=== PATIENT | male | born 1990 | race Hispanic/Latino ===

== ENCOUNTER 2020-11-10 04:46 | Emergency (ER) | payer SELFPAY ==
[2020-11-10] MEDS ORDERED: ACETAMINOPHEN 500 MG TAB ONE (05:54)
[2020-11-10 06:00] LABS: Protime INR 1.22
[2020-11-10 06:01] LABS: Absolute Lymphocytes (CBC) 0.8 K/uL (0.7-4.9); Basophils % 0.2 % (0-1.3); Hematocrit 36.8 % (39.6-49.0); Lymphocytes % 17.1 % (15.3-44.8); MPV 8.9 fL (7.6-11.3); RBC Red Blood Cell Count 4.14 M/uL (4.33-5.43)
[2020-11-10 06:11] LABS: ALT/SGPT 55 U/L (12-78); AST/SGOT 51 U/L (15-37); Albumin 3.1 g/dL (3.4-5.0); Alkaline Phosphatase 89 U/L (45-117); BUN Blood Urea Nitrogen 10 mg/dL (7-18); Bicarbonate 27 mmol/L (21-32); Bilirubin Direct 0.2 mg/dL (0-0.2); Bilirubin Total 0.5 mg/dL (0.2-1.0); Glucose Level 92 mg/dL (74-106); Magnesium 2.3 mg/dL (1.8-2.4); NT PRO-BNP 16 pg/mL (<125); Potassium 3.9 mmol/L (3.5-5.1); Sodium Level 137 mmol/L (136-145); Troponin (Emerg Dept Use Only) < 0.02 ng/mL (0.0-0.045)
[2020-11-10] MEDS ORDERED: NA CHLORIDE 0.9% 1,000 ML ONE (06:33)
--- NOTE | 2020-11-10 07:25 | ER ---
Nurse's Notes [facility] Name: Merritt Montano Age: 30 yrs Sex: Male : 1990 Arrival Date: 11/10/2020 Time: 04:48 Bed 5 Private MD: Diagnosis: Pneumonia Presentation: 11/10 05:00 Chief complaint: Patient states: I have been having a fever since yesterday. This jb4 morning I noticed when I was trying to be active and move around I began getting very short of breath and my chest hurt, so I wanted to get checked out. 05:00 Coronavirus screen: Client denies travel out of the [place] in the last 14 days. At this jb4 time, the client does not indicate any symptoms associated with coronavirus-19. Ebola Screen: No symptoms or risks identified at this time. Initial Sepsis Screen: Does the patient meet any 2 criteria? Temp <36.0*C (96.8*F)) or > 38.3*C (100.9*F). HR > 90 bpm. Yes Does the patient have a suspected source of infection? No. Patient's initial sepsis screen is negative. Risk Assessment: Do you want to hurt yourself or someone else? Patient reports no desire to harm self or others. Onset of symptoms was November 09, 2020. Transition of care: patient was not received from another setting of care. 05:00 Method Of Arrival: Ambulatory jb4 05:00 Acuity: NATI 3 jb4 Historical: - Allergies: 05:00 No Known Allergies; jb4 - Home Meds: 05:00 None [Active]; jb4 - PMHx: 05:00 None; jb4 - PSHx: 05:00 None; jb4 - Immunization history:: Adult Immunizations up to date. - Social history:: Smoking status: Patient denies any tobacco usage or history of. Patient/guardian denies using alcohol, street drugs. Screenin:19 Abuse screen: Denies threats or abuse. Nutritional screening: No deficits noted. jb4 Tuberculosis screening: No symptoms or risk factors identified. Fall Risk None identified. Assessment: 05:19 General: Appears in no apparent distress. uncomfortable, Behavior is calm, cooperative, jb4 appropriate for age. Pain: Complains of pain in chest Pain does not radiate. Pain currently is 8 out of 10 on a pain scale. Quality of pain is described as sharp, Pain began 2 hours ago. Neuro: Level of Consciousness is awake, alert, obeys commands, Oriented to person, place, time, situation. Cardiovascular: Patient's skin is warm and dry. Respiratory: Reports shortness of breath on exertion Airway is patent Respiratory effort is even, unlabored, Respiratory pattern is regular, symmetrical. GI: No signs and/or symptoms were reported involving the gastrointestinal system. : No signs and/or symptoms were reported regarding the genitourinary system. EENT: No signs and/or symptoms were reported regarding the EENT system. Derm: Skin is intact, Skin is pink, warm \T\ dry. Musculoskeletal: Circulation, motion, and sensation intact. Range of motion: intact in all extremities. 06:28 Reassessment: Patient appears in no apparent distress at this time. Patient and/or mg2 family updated on plan of care and expected duration. Pain level reassessed. Patient is alert, oriented x 3, equal unlabored respirations, skin warm/dry/pink. 07:58 Reassessment: Patient appears in no apparent distress at this time. Patient and/or ph family updated on plan of care and expected duration. Pain level reassessed. Patient is alert, oriented x 3, equal unlabored respirations, skin warm/dry/pink. D/C pending completion of IV antibiotics. 09:04 Reassessment: Patient appears in no apparent distress at this time. Patient and/or ph family updated on plan of care and expected duration. Pain level reassessed. Patient is alert, oriented x 3, equal unlabored respirations, skin warm/dry/pink. Pt d/c home w/ family. Vital Signs: 05:00 BP 123 / 73; Pulse 108; Resp 20; Temp 103.1(O); Pulse Ox 95% on R/A; Pain 8/10; jb4 06:26 BP 116 / 68; Pulse 87; Resp 18; Temp 100.4(O); Pulse Ox 97% on R/A; mg2 07:30 BP 120 / 78; Pulse 72; Resp 18; Pulse Ox 97% on R/A; ph 09:05 BP 118 / 70; Pulse 86; Resp 18; Temp 99.0; Pulse Ox 97% on R/A; ph ED Course: 04:48 Patient arrived in ED. cl3 04:56 Jonh Donis MD is Attending Physician. mh7 05:00 Arm band placed on right wrist. jb4 05:14 Nhan Hurst, RN is Primary Nurse. jb4 05:18 Triage completed. jb4 05:19 Patient has correct armband on for positive identification. Placed in gown. Bed in low jb4 position. Call light in reach. Side rails up X 1. Pulse ox on. NIBP on. 05:19 Patient maintains SpO2 saturation greater than 95% on room air. jb4 05:29 XRAY Chest (1 view) In Process Unspecified. EDMS 05:40 Inserted saline lock: 18 gauge in right antecubital area, using aseptic technique. mg2 Blood collected. by ISABELA Dickey. 05:49 No provider procedures requiring assistance completed. mg2 07:16 Primary Nurse role handed off by Nhan Hurst, RN jb4 07:21 Felisa Still, RN is Primary Nurse. ph 09:07 IV discontinued, intact, bleeding controlled, No redness/swelling at site. Pressure ph dressing applied. Administered Medications: 05:43 Drug: Tylenol 1000 mg Route: PO; dm5 06:28 Follow up: Response: No adverse reaction; Temperature is decreased mg2 06:22 Drug: NS 0.9% 1000 ml Route: IV; Rate: 1000 ml; Site: right antecubital; mg2 08:00 Follow up: Response: No adverse reaction; IV Status: Completed infusion; IV Intake: ph 1000ml 07:50 Drug: Rocephin - (cefTRIAXone) 1 grams {Note: given as 10mL IVP.} Route: IVPB; Infused ph Over: 30 mins; Site: right antecubital; 07:57 Follow up: Response: No adverse reaction; IV Status: Completed infusion ph 07:55 Drug: Zithromax 500 mg Route: IVPB; Infused Over: 1 hrs; Site: right antecubital; ph 09:04 Follow up: Response: No adverse reaction; IV Status: Completed infusion; IV Intake: ph 250ml Intake: 08:00 IV: 1000ml; Total: 1000ml. ph 09:04 IV: 250ml; Total: 1250ml. ph Outcome: 07:24 Discharge ordered by . mh7 09:07 Discharged to home ambulatory, with family. ph 09:07 Condition: good 09:07 Discharge instructions given to patient, family, Instructed on discharge instructions, follow up and referral plans. medication usage, Demonstrated understanding of instructions, follow-up care, medications, Prescriptions given X 2. 09:08 Patient left the ED. ph Addendum: 11/12/2020 17:39 Addendum: COVID-19 Result: Positive result giiven to ED physician to notify pt. s v Physician: Steven Saavedra MD Physician attempted to contact pt but the phone number provided was either not a working number or they were unable to leave a voice mail. Signatures: Dispatcher [employer] EDMS Claribel Urena RN RN dm5 Shanell Joseph RN RN sv Felisa Still RN RN Nhan Hurst RN RN jb4 Danis Levine RN RN [facility] Bhavin Lee cl3 Jonh Donis MD MD mh7 Corrections: (The following items were deleted from the chart) 17:43 17:39 Addendum: COVID-19 Result: Positive result giiven to ED physician to notify pt. sv Physician: Steven Saavedra MD Physician was able to contact pt and pt was notified of positive COVID-19 swab result. Physician answered pt questions. sv
--- NOTE | 2020-11-10 07:25 | EDPHYS ---
Physician Documentation [facility] Name: Merritt Montano Age: 30 yrs Sex: Male : 1990 Arrival Date: 11/10/2020 Time: 04:48 Bed 5 Private MD: ED Physician Jonh Donis HPI: 11/10 06:12 This 30 yrs old Male presents to ER via Ambulatory with complaints of Chest mh7 Pain, Breathing Difficulty. 06:13 The patient or guardian reports cough, with productive sputum, that is green, mh7 difficulty breathing. Onset: The symptoms/episode began/occurred yesterday. Severity of symptoms: At their worst the symptoms were moderate, in the emergency department the symptoms have improved, moderately. Modifying factors: The symptoms are alleviated by nothing, the symptoms are aggravated by nothing. Associated signs and symptoms: Pertinent positives: chest pain, with cough, fever, Pertinent negatives: diarrhea, ear ache, nausea, rhinorrhea, sore throat, vomiting. Historical: - Allergies: 05:00 No Known Allergies; jb4 - Home Meds: 05:00 None [Active]; jb4 - PMHx: 05:00 None; jb4 - PSHx: 05:00 None; jb4 - Immunization history:: Adult Immunizations up to date. - Social history:: Smoking status: Patient denies any tobacco usage or history of. Patient/guardian denies using alcohol, street drugs. ROS: 06:13 Eyes: Negative for injury, pain, redness, and discharge, ENT: Negative for injury, mh7 pain, and discharge, Neck: Negative for injury, pain, and swelling, Abdomen/GI: Negative for abdominal pain, nausea, vomiting, diarrhea, and constipation, Back: Negative for injury and pain, : Negative for injury, bleeding, discharge, and swelling, MS/Extremity: Negative for injury and deformity, Skin: Negative for injury, rash, and discoloration, Neuro: Negative for headache, weakness, numbness, tingling, and seizure, Psych: Negative for depression, anxiety, suicide ideation, homicidal ideation, and hallucinations, Allergy/Immunology: Negative for hives, rash, and allergies, Endocrine: Negative for neck swelling, polydipsia, polyuria, polyphagia, and marked weight changes, Hematologic/Lymphatic: Negative for swollen nodes, abnormal bleeding, and unusual bruising. Exam: 06:13 Constitutional: This is a well developed, well nourished patient who is awake, alert, mh7 and in no acute distress. Head/Face: Normocephalic, atraumatic. Eyes: Pupils equal round and reactive to light, extra-ocular motions intact. Lids and lashes normal. Conjunctiva and sclera are non-icteric and not injected. Cornea within normal limits. Periorbital areas with no swelling, redness, or edema. ENT: Nares patent. No nasal discharge, no septal abnormalities noted. Tympanic membranes are normal and external auditory canals are clear. Oropharynx with no redness, swelling, or masses, exudates, or evidence of obstruction, uvula midline. Mucous membranes moist. Neck: Trachea midline, no thyromegaly or masses palpated, and no cervical lymphadenopathy. Supple, full range of motion without nuchal rigidity, or vertebral point tenderness. No Meningismus. Chest/axilla: Normal chest wall appearance and motion. Nontender with no deformity. No lesions are appreciated. Cardiovascular: Regular rate and rhythm with a normal S1 and S2. No gallops, murmurs, or rubs. Normal PMI, no JVD. No pulse deficits. Respiratory: Lungs have equal breath sounds bilaterally, clear to auscultation and percussion. No rales, rhonchi or wheezes noted. No increased work of breathing, no retractions or nasal flaring. Abdomen/GI: Soft, non-tender, with normal bowel sounds. No distension or tympany. No guarding or rebound. No evidence of tenderness throughout. Back: No spinal tenderness. No costovertebral tenderness. Full range of motion. Skin: Warm, dry with normal turgor. Normal color with no rashes, no lesions, and no evidence of cellulitis. MS/ Extremity: Pulses equal, no cyanosis. Neurovascular intact. Full, normal range of motion. Neuro: Awake and alert, GCS 15, oriented to person, place, time, and situation. Cranial nerves II-XII grossly intact. Motor strength 5/5 in all extremities. Sensory grossly intact. Cerebellar exam normal. Normal gait. Psych: Awake, alert, with orientation to person, place and time. Behavior, mood, and affect are within normal limits. Vital Signs: 05:00 BP 123 / 73; Pulse 108; Resp 20; Temp 103.1(O); Pulse Ox 95% on R/A; Pain 8/10; jb4 06:26 BP 116 / 68; Pulse 87; Resp 18; Temp 100.4(O); Pulse Ox 97% on R/A; mg2 07:30 BP 120 / 78; Pulse 72; Resp 18; Pulse Ox 97% on R/A; ph 09:05 BP 118 / 70; Pulse 86; Resp 18; Temp 99.0; Pulse Ox 97% on R/A; ph MDM: 07:22 Differential Diagnosis: Bronchitis Influenza Allergic Rhinitis Viral Syndrome mh7 Pneumonia. Data reviewed: vital signs, nurses notes, lab test result(s), cardiac enzymes, CBC, electrolytes, urinalysis, EKG, radiologic studies, plain films. Data interpreted: Pulse oximetry: on room air is 97 %. Interpretation: normal. Counseling: I had a detailed discussion with the patient and/or guardian regarding: the historical points, exam findings, and any diagnostic results supporting the discharge/admit diagnosis, lab results, radiology results, the need for outpatient follow up, to return to the emergency department if symptoms worsen or persist or if there are any questions or concerns that arise at home. Response to treatment: the patient's symptoms have resolved after treatment, the patient's blood pressure is in an acceptable range, mental status has returned to baseline, the patient no longer shows bradycardia, the patient is not short of breath, the patient is not tachycardic, the patient's pain is gone, the patient's temperature has normalized. 07:24 Patient medically screened. [facility] 11/10 05:08 Order name: Basic Metabolic Panel; Complete Time: 06:15 [facility] 11/10 05:08 Order name: CBC with Diff; Complete Time: 06:15 [facility] 11/10 05:08 Order name: LFT's; Complete Time: 06:15 [facility] 11/10 05:08 Order name: Magnesium; Complete Time: 06:15 [facility] 11/10 05:08 Order name: NT PRO-BNP; Complete Time: 06:15 [facility] 11/10 05:08 Order name: PT-INR; Complete Time: 06:15 [facility] 11/10 05:08 Order name: Troponin (emerg Dept Use Only); Complete Time: 06:15 [facility] 11/10 05:08 Order name: XRAY Chest (1 view); Complete Time: 20:12 11/10 05:09 Order name: Influenza Screen (a \T\ B); Complete Time: 06:18 [facility] 11/10 05:09 Order name: COVID-19 [facility] 11/10 05:09 Order name: Blood Culture Adult (2) [facility] 11/10 06:18 Order name: Lactate; Complete Time: 06:57 11/10 06:18 Order name: Procalcitonin; Complete Time: 07:18 [facility] 11/10 05:08 Order name: EKG; Complete Time: 05:09 [facility] 11/10 05:08 Order name: Cardiac monitoring; Complete Time: 05:12 [facility] 11/10 05:08 Order name: EKG - Nurse/Tech; Complete Time: 05:12 11/10 05:08 Order name: IV Saline Lock; Complete Time: 05:49 [facility] 11/10 05:08 Order name: Labs collected and sent; Complete Time: 05:49 [facility] 11/10 05:08 Order name: O2 Per Protocol; Complete Time: 05:49 11/10 05:08 Order name: O2 Sat Monitoring; Complete Time: 05:49 mh7 Administered Medications: 05:43 Drug: Tylenol 1000 mg Route: PO; dm5 06:28 Follow up: Response: No adverse reaction; Temperature is decreased mg2 06:22 Drug: NS 0.9% 1000 ml Route: IV; Rate: 1000 ml; Site: right antecubital; mg2 08:00 Follow up: Response: No adverse reaction; IV Status: Completed infusion; IV Intake: ph 1000ml 07:50 Drug: Rocephin - (cefTRIAXone) 1 grams {Note: given as 10mL IVP.} Route: IVPB; Infused ph Over: 30 mins; Site: right antecubital; 07:57 Follow up: Response: No adverse reaction; IV Status: Completed infusion ph 07:55 Drug: Zithromax 500 mg Route: IVPB; Infused Over: 1 hrs; Site: right antecubital; ph 09:04 Follow up: Response: No adverse reaction; IV Status: Completed infusion; IV Intake: ph 250ml Disposition: 11/10/20 07:24 Discharged to Home. Impression: Pneumonia. - Condition is Stable. - Discharge Instructions: Community-Acquired Pneumonia, Adult, Sjyj-[id number]. - Prescriptions for Zithromax Z- Sherman 250 mg Oral Tablet - take 1 tablet by ORAL route as directed for 5 days Day 1 - take two (2) tablets one time. Day 2, 3, 4 , 5 take one (1) tablet once daily.; 6 tablet. Albuterol Sulfate 90 mcg/actuation - inhale 1-2 puff by INHALATION route every 4-6 hours; 1 Inhaler. - Work release form, Medication Reconciliation Form, Thank You Letter, Antibiotic Education, Prescription Opioid Use form. - Follow up: Private Physician; When: 1 - 2 days; Reason: Worsening of condition, Recheck today's complaints, Continuance of care, Re-evaluation by your physician. - Problem is new. - Symptoms have improved. Signatures: Dispatcher [employer] EDClaribel Barajas RN RN dm5 Felisa Still RN RN ph Nhan Hurst RN RN jb4 Danis Levine RN RN mg2 Jonh Donis MD MD mh7 Corrections: (The following items were deleted from the chart) 09:08 07:24 11/10/2020 07:24 Discharged to Home. Impression: Pneumonia. Condition is Stable. ph Forms are Medication Reconciliation Form, Thank You Letter, Antibiotic Education, Prescription Opioid Use. Follow up: Private Physician; When: 1 - 2 days; Reason: Worsening of condition, Recheck today's complaints, Continuance of care, Re-evaluation by your physician. Problem is new. Symptoms have improved. mh7
[2020-11-10] MEDS ORDERED: CEFTRIAXONE/SWI 1gm 1 GM/10 ML SYR ONE (07:47)
[2020-11-10] MEDS ORDERED: AZITHROMYCIN IV 500 MG in NA CHLORIDE 0.9% 250 ML IVPB ONE (08:00)
--- NOTE | 2020-11-10 11:57 | RAD REPORT ---
EXAM DESCRIPTION: RAD - Chest Single View - 11/10/2020 5:29 am CLINICAL HISTORY: SOB Chest pain. COMPARISON: No comparisons FINDINGS: Portable technique limits examination quality. Mild bilateral pulmonary opacities are present, greatest in the medial left lung base, likely represe nting pneumonia. The heart is normal in size. No displaced fractures.
--- NOTE | 2020-11-11 07:35 | EKG ---
Test Date: 2020-11-10 Test Time: 05:05:23 Fiber Optics Technician: AUDELIA MEASUREMENT RESULTS: Intervals: Rate: 90 MA: 142 QRSD: 74 QT: 352 QTc: 430 [place]: P: 36 MA: 142 QRS: 66 T: 15 INTERPRETIVE STATEMENTS: Normal sinus rhythm Normal ECG No previous ECG available for comparison Electronically Signed On 11-11-20 07:34:24 [employer]ING [employer] OFFIC[employer] by Cosme [place]
[2020-11-12 08:56] VITALS: O2SAT 97
[2020-11-12 08:58] VITALS: BP 118/70; TEMP 99
== END 2020-11-10 09:08 | disposition home or self-care (01) ==
LOC: ER 04:46
DX: U07.1 COVID-19 (principal); J12.89 Other viral pneumonia
CPT/HCPCS: 36415; 71045; 80048; 80076; 83605; 83735; 83880; 84145; 84484; 85025; 85610; 87040; 87804; 93005; 96361; 96365; 96375; 99284; J0456; J0696; J7030; J7050; U0002

== ENCOUNTER 2022-10-25 17:57 | Emergency (ER) | payer SELFPAY ==
[2022-10-25] MEDS ORDERED: ONDANSETRON 4 MG/2 ML VIAL ONE ×2 (18:34→18:52)
[2022-10-25] MEDS ORDERED: MORPHINE 4 MG/ML SYR ONE (18:34)
[2022-10-25] MEDS ORDERED: NA CHLORIDE 0.9% 1,000 ML ONE (18:34)
[2022-10-25 18:47] LABS: Absolute Lymphocytes (CBC) 2.9 K/uL (0.7-4.9); Hematocrit 42.4 % (39.6-49.0); Lymphocytes % 32.8 % (15.3-44.8); MCV 89.5 fL (80-100); MPV 8.3 fL (7.6-11.3); RBC Red Blood Cell Count 4.73 M/uL (4.33-5.43)
[2022-10-25] MEDS ORDERED: KETOROLAC 30 MG/ML INJ ONE (18:52)
[2022-10-25 19:06] LABS: Albumin 3.9 g/dL (3.4-5.0); Bilirubin Total 0.5 mg/dL (0.2-1.0); Potassium 3.7 mmol/L (3.5-5.1); Protein, Total 8.6 g/dL (6.4-8.2)
--- NOTE | 2022-10-25 20:20 | RAD REPORT ---
EXAM DESCRIPTION: CT - Stone Protocol - 10/25/2022 7:46 pm CLINICAL HISTORY: right abd and flank pain COMPARISON: Abdomen Single View dated 10/25/2022 TECHNIQUE: Axial 3 mm thick images were obtained without oral or IV contrast. The [id number] span s the entirety of the system including uppermost abdomen and lung bases. All CT scans are performed using dose optimization technique as appropriate and may include automated exposure control or mA/KV adjustment according to patient size. FINDINGS: [id number] right-sided hydronephrosis of the pelvis and right ureter down to the pel eugenia inlet noted. There is an obstructing 7 mm calcification of the right ureter at the pelvic inlet. An additional 6 millimeter nonobstructing calyx calcifications seen upper pole of the right kidney. R ight kidney is slightly edematous relative the left. No left-sided hydronephrosis or significant calc ification. No suspicious renal masses. Isodense masses and pyelonephritis are not excluded on a stone protocol CT scan. No significant adrenal finding. No urinary bladder suspicious finding. Imaged portions of the liver, spleen and pancreas show no suspicious findings on non-contrast imaging . No gallbladder or biliary tree abnormality identified. No suspicious bowel findings. No hernia, mass or bulky lymphadenopathy noted. No free air, free fluid or inflammatory stranding. No significant bony abnormality. IMPRESSION: [id number] right-sided hydronephrosis and hydroureter down to the pelvic inlet whe re there is an obstructing 7 mm calcification. Isodense masses and pyelonephritis are not excluded on stone protocol technique.
[2022-10-25 20:42] LABS: Urine Mucus Slight /HPF (None Seen); Urine RBC 21-50 /HPF (None Seen)
[2022-10-25] MEDS ORDERED: HYDROCODONE/APAP 10/325 TAB ONE (20:55)
[2022-10-25] MEDS ORDERED: TAMSULOSIN 0.4 MG SR CAP ONE (20:56)
[2022-10-25] MEDS ORDERED: MAGNESIUM SULFATE 1 gm IVPB 1 GM/100 ML BAG IV ONE (20:56)
--- NOTE | 2022-10-25 22:14 | EDPHYS ---
Physician Documentation [facility] Name: Merritt Montano Age: 32 yrs Sex: Male : 1990 Arrival Date: 10/25/2022 Time: 17:59 Bed 11 Private MD: ED Physician Ludin Ochoa HPI: 10/25 20:11 This 32 yrs old Male presents to ER via Ambulatory with complaints of Low Abd kb Pain. 20:11 The patient complains of pain in the right flank. The pain radiates to the groin and kb right lower quadrant. Onset: The symptoms/episode began/occurred 2 hour(s) ago. Modifying factors: The symptoms are alleviated by nothing. the symptoms are aggravated by nothing. Associated signs and symptoms: Pertinent positives: nausea, vomiting. Severity of pain: At its worst the pain was moderate in the emergency department the pain is unchanged. The patient has not experienced similar symptoms in the past. The patient has not recently seen a physician. 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 Denies urinary sypmtoms. Historical: - Allergies: 18:02 No Known Allergies; ld1 - PMHx: 18:02 None; ld1 - PSHx: 18:02 None; ld1 - Immunization history:: Adult Immunizations up to date, Client reports receiving the 2nd dose of the Covid vaccine. - Social history:: Smoking status: Patient denies any tobacco usage or history of. Patient/guardian denies using alcohol. ROS: 20:10 Constitutional: Negative for fever, chills, and weight loss. kb 20:10 Abdomen/GI: Positive for abdominal pain, nausea and vomiting. 20:10 : Positive for flank pain, testicular pain 20:10 All other systems are negative. Exam: 20:10 Constitutional: This is a well developed, well nourished patient who is awake, alert, kb and in no acute distress. Head/Face: Normocephalic, atraumatic. ENT: Moist Mucous membranes Cardiovascular: Regular rate and rhythm with a normal S1 and S2. No gallops, murmurs, or rubs. No pulse deficits. Respiratory: Respirations even and unlabored. No increased work of breathing. Talking in full sentences Skin: Warm, dry with normal turgor. Normal color. MS/ Extremity: Pulses equal, no cyanosis. Neurovascular intact. Full, normal range of motion. Neuro: Awake and alert, GCS 15, oriented to person, place, time, and situation. Moves all extremities. Normal gait. Psych: Awake, alert, with orientation to person, place and time. Behavior, mood, and affect are within normal limits. 20:10 Abdomen/GI: Inspection: abdomen appears normal, Bowel sounds: normal, Palpation: soft, in all quadrants, mild abdominal tenderness, in the right lower quadrant. 20:10 Back: CVA tenderness, that is moderate, is noted on the right. Vital Signs: 18:00 Pulse 64; Resp 18; Temp 98.6(O); Pulse Ox 100% on R/A; Weight 124.74 kg; Height 5 ft. 5 ld1 in. (165.10 cm); Pain 10/10; 18:55 BP 128 / 71; Pulse 62; Resp 18 S; Pulse Ox 99% on R/A; Pain 7/10; aa5 22:00 BP 133 / 66; Pulse 63; Resp 18; Temp 98.2; Pulse Ox 100% on R/A; vc1 18:00 Body Mass Index 45.76 (124.74 kg, 165.10 cm) ld1 MDM: 18:03 Patient medically screened. 20:09 Data reviewed: vital signs, nurses notes. Data interpreted: Pulse oximetry: on room air kb is 99 %. Interpretation: normal. 22:13 Counseling: I had a detailed discussion with the patient and/or guardian regarding: the historical points, exam findings, and any diagnostic results supporting the discharge/admit diagnosis, lab results, radiology results, the need for outpatient follow up, a urologist, to return to the emergency department if symptoms worsen or persist or if there are any questions or concerns that arise at home. 22:16 ED course: Pt controlled. Pt will call Dr Mcnair' office tomorrow for follow up. 22:17 Data reviewed: I have discussed the patient's presentation/case with the attending Emergency Department Physician;. 10/25 18:03 Order name: CBC with Diff; Complete Time: 18:50 kb 10/25 18:03 Order name: CMP; Complete Time: 19:15 kb 10/25 18:03 Order name: CT Stone Protocol; Complete Time: 20:23 kb 10/25 18:03 Order name: Lipase; Complete Time: 19:15 kb 10/25 18:03 Order name: Urine Microscopic Only; Complete Time: 20:43 kb 10/25 18:03 Order name: IV Saline Lock; Complete Time: 18:33 kb 10/25 18:03 Order name: Labs collected and sent; Complete Time: 18:33 kb 10/25 18:03 Order name: Urine Dipstick-Ancillary (obtain specimen); Complete Time: 18:45 kb Administered Medications: 18:38 Drug: Zofran (Ondansetron) 4 mg Route: IVP; Site: left antecubital; aa5 18:50 Follow up: Response: No change in condition; No change in condition. 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 18:38 Drug: morphine 4 mg Route: IVP; Infused Over: 4 mins; Site: left antecubital; aa5 18:50 Follow up: Response: No adverse reaction; Pain is unchanged, physician notified aa5 18:40 Drug: NS 0.9% 1000 ml Route: IV; Rate: 1 bolus; Site: left antecubital; aa5 19:40 Follow up: IV Status: Completed infusion; IV Intake: 1000ml vc1 18:51 Drug: Zofran (Ondansetron) 4 mg Route: IVP; Site: left antecubital; aa5 22:00 Follow up: Response: No adverse reaction; Marked relief of symptoms; Nausea is decreasedvc1 18:53 Drug: Ketorolac 15 mg Route: IVP; Site: left antecubital; aa5 22:00 Follow up: Response: No adverse reaction; Marked relief of symptoms vc1 21:14 Drug: Magnesium Sulfate 1 grams Route: IVPB; Infused Over: 1 hrs; Site: left vc1 antecubital; 22:14 Follow up: IV Status: Completed infusion; IV Intake: 100ml vc1 21:14 Drug: [place] (HYDROcodone-acetaminophen) 10 mg-325 mg 1 tabs Route: PO; vc1 22:00 Follow up: Response: No adverse reaction; Marked relief of symptoms; Pain is decreased vc1 21:15 Drug: Flomax (tamsulosin) 0.4 mg Route: PO; vc1 22:00 Follow up: Response: No adverse reaction; Marked relief of symptoms vc1 Disposition Summary: 12/04/22 22:14 Discharge Ordered Location: Home Condition: Stable Diagnosis - Calculus of ureter kb Followup: kb - With: Emergency Department - When: As needed - Reason: Worsening of condition Followup: kb - With: Private Physician - When: 2 - 3 days - Reason: Recheck today's complaints, Continuance of care, Re-evaluation by your physician Followup: kb - With: Smooth Mcnair MD - When: Tomorrow - Reason: Recheck today's complaints Discharge Instructions: - Discharge Summary Sheet kb - Kidney Stones, [id number] kb - Dietary Guidelines to Help Prevent Kidney Stones kb Forms: - Medication Reconciliation Form kb - Thank You Letter kb - Antibiotic Education kb - Prescription Opioid Use kb Prescriptions: - Flomax 0.4 mg Oral capsule - take 1 capsule by ORAL route once daily 1/2 hour following the same meal each kb day; 10 capsule; Refills: 0, Product Selection Permitted - Zofran 4 mg Oral Tablet - take 1 tablet by ORAL route every 6 hours As needed; 20 tablet; Refills: 0, Product Selection Permitted - Diclofenac Sodium 75 mg Oral tablet,delayed release (DR/EC) - take 1 tablet by ORAL route 2 times per day As needed; 30 tablet; Refills: 0, Product Selection Permitted - Tylenol-Codeine #3 300 mg-30 mg Oral - take 1 tablet by ORAL route every 6 hours As needed; 10 tablet; Refills: 0, Product Selection Permitted Signatures: Dispatcher [employer] Tiffany White, FREDDY-C SNATH HANDLE ASSEMBLER-Mindy Beltran RN RN aa5 Alma Fields RN RN ld1 Kenya Watters RN RN vc1
--- NOTE | 2022-10-25 22:14 | ER ---
Nurse's Notes [facility] Name: Merritt Montano Age: 32 yrs Sex: Male : 1990 Arrival Date: 10/25/2022 Time: 17:59 Bed 11 Private MD: Diagnosis: Calculus of ureter Presentation: 10/25 18:00 Chief complaint: Patient states: Testicular pain, groin pain, lower abdominal pain, ld1 right sided flank pain - began two hours ago. Coronavirus screen: At this time, the client does not indicate any symptoms associated with coronavirus-19. Ebola Screen: No symptoms or risks identified at this time. Initial Sepsis Screen: Does the patient meet any 2 criteria? No. Patient's initial sepsis screen is negative. Does the patient have a suspected source of infection? No. Patient's initial sepsis screen is negative. Risk Assessment: Do you want to hurt yourself or someone else? Patient reports no desire to harm self or others. Onset of symptoms was October 25, 2022. 18:00 Method Of Arrival: Ambulatory ld1 18:00 Acuity: NATI 3 ld1 Triage Assessment: 18:02 General: Appears in no apparent distress. uncomfortable, Behavior is calm, cooperative, ld1 appropriate for age. Pain: Complains of pain in back, abdomen and pelvis Pain does not radiate. Pain currently is 10 out of 10 on a pain scale. Quality of pain is described as throbbing. EENT: No signs and/or symptoms were reported regarding the EENT system. Neuro: Level of Consciousness is awake, alert, obeys commands, Oriented to person, place, time, situation. Cardiovascular: Capillary refill < 3 seconds Patient's skin is warm and dry. Respiratory: Airway is patent Respiratory effort is even, unlabored. GI: Abdomen is round obese. GI: Reports lower abdominal pain. : No signs and/or symptoms were reported regarding the genitourinary system. : Reports pain in bilateral flank(s), lower quadrant(s) Scrotal pain: sudden onset. Derm: No signs and/or symptoms reported regarding the dermatologic system. Musculoskeletal: No signs and/or symptoms reported regarding the musculoskeletal system. Historical: - Allergies: 18:02 No Known Allergies; ld1 - PMHx: 18:02 None; ld1 - PSHx: 18:02 None; ld1 - Immunization history:: Adult Immunizations up to date, Client reports receiving the 2nd dose of the Covid vaccine. - Social history:: Smoking status: Patient denies any tobacco usage or history of. Patient/guardian denies using alcohol. Screenin:09 Abuse screen: Denies threats or abuse. Nutritional screening: No deficits noted. vc1 Tuberculosis screening: No symptoms or risk factors identified. Fall Risk None identified. Assessment: 18:38 General: Appears uncomfortable, Behavior is cooperative. Neuro: Level of Consciousness aa5 is awake, alert, obeys commands, Oriented to person, place, time, situation. Respiratory: Airway is patent Respiratory effort is even, unlabored, Respiratory pattern is regular, symmetrical. Derm: Skin is clammy, Skin is normal, Skin temperature is cool. 18:38 Pain: Pain currently is 10 out of 10 on a pain scale. aa5 18:50 Reassessment: Patient states symptoms have not improved. Pt actively vomiting . aa5 18:50 Pain: Pain currently is 10 out of 10 on a pain scale. aa5 18:50 Neuro: Level of Consciousness is awake, alert, obeys commands, Oriented to person, aa5 place, time, situation. Respiratory: Airway is patent Respiratory effort is even, unlabored, Respiratory pattern is regular, symmetrical. Derm: Skin is dry, Skin is normal, Skin temperature is cool. 18:52 Reassessment: Pt vomited 100cc of bile . aa5 18:52 Reassessment: Awaiting CT scan . aa5 18:57 Reassessment: Patient states feeling better. Patient states symptoms have improved. aa5 Pain: Pain currently is 7 out of 10 on a pain scale. Neuro: Level of Consciousness is awake, alert, obeys commands, Oriented to person, place, time, situation. Respiratory: Airway is patent Respiratory effort is even, unlabored, Respiratory pattern is regular, symmetrical. Derm: Skin is dry, Skin is normal, Skin temperature is cool. 22:11 Reassessment: Patient and/or family updated on plan of care and expected duration. Pain vc1 level reassessed. Patient is alert, oriented x 3, equal unlabored respirations, skin warm/dry/pink. Patient states feeling better. Patient states symptoms have improved. Vital Signs: 18:00 Pulse 64; Resp 18; Temp 98.6(O); Pulse Ox 100% on R/A; Weight 124.74 kg; Height 5 ft. 5 ld1 in. (165.10 cm); Pain 10/10; 18:55 BP 128 / 71; Pulse 62; Resp 18 S; Pulse Ox 99% on R/A; Pain 7/10; aa5 22:00 BP 133 / 66; Pulse 63; Resp 18; Temp 98.2; Pulse Ox 100% on R/A; vc1 18:00 Body Mass Index 45.76 (124.74 kg, 165.10 cm) ld1 ED Course: 17:59 Patient arrived in ED. rg4 17:59 Tiffany Santos FNP-C [facility]. kb 17:59 Ludin Ochao MD is Attending Physician. kb 18:02 Triage completed. ld1 18:02 Arm band placed on right wrist. ld1 18:35 Initial lab(s) drawn, by vt, sent to lab. Inserted saline lock: 20 gauge in left aa5 antecubital area, using aseptic technique. Blood collected. 18:45 Urine collected: clean catch specimen, cloudy. rs5 19:48 CT Stone Protocol In Process Unspecified. EDMS 20:12 Kenya Watters, RN is Primary Nurse. vc1 22:10 Patient has correct armband on for positive identification. Bed in low position. Call vc1 light in reach. Pulse ox on. NIBP on. 22:13 Smooth Mcnair MD is Referral Physician. kb 22:33 No provider procedures requiring assistance completed. IV discontinued, intact, vc1 bleeding controlled, No redness/swelling at site. Pressure dressing applied. Administered Medications: 18:38 Drug: Zofran (Ondansetron) 4 mg Route: IVP; Site: left antecubital; aa5 18:50 Follow up: Response: No change in condition; No change in condition. Pt vomiting, GALLEY HAND aa5 was notified. 18:38 Drug: morphine 4 mg Route: IVP; Infused Over: 4 mins; Site: left antecubital; aa5 18:50 Follow up: Response: No adverse reaction; Pain is unchanged, physician notified aa5 18:40 Drug: NS 0.9% 1000 ml Route: IV; Rate: 1 bolus; Site: left antecubital; aa5 19:40 Follow up: IV Status: Completed infusion; IV Intake: 1000ml vc1 18:51 Drug: Zofran (Ondansetron) 4 mg Route: IVP; Site: left antecubital; aa5 22:00 Follow up: Response: No adverse reaction; Marked relief of symptoms; Nausea is decreasedvc1 18:53 Drug: Ketorolac 15 mg Route: IVP; Site: left antecubital; aa5 22:00 Follow up: Response: No adverse reaction; Marked relief of symptoms vc1 21:14 Drug: Magnesium Sulfate 1 grams Route: IVPB; Infused Over: 1 hrs; Site: left vc1 antecubital; 22:14 Follow up: IV Status: Completed infusion; IV Intake: 100ml vc1 21:14 Drug: [place] (HYDROcodone-acetaminophen) 10 mg-325 mg 1 tabs Route: PO; vc1 22:00 Follow up: Response: No adverse reaction; Marked relief of symptoms; Pain is decreased vc1 21:15 Drug: Flomax (tamsulosin) 0.4 mg Route: PO; vc1 22:00 Follow up: Response: No adverse reaction; Marked relief of symptoms vc1 Medication: 22:10 VIS not applicable for this client. vc1 Intake: 19:40 IV: 1000ml; Total: 1000ml. vc1 22:14 IV: 100ml; Total: 1100ml. vc1 Outcome: 22:14 Discharge ordered by . kb 22:33 Discharged to home ambulatory, with family. vc1 22:33 Condition: good 22:33 Discharge instructions given to patient, Instructed on discharge instructions, follow up and referral plans. medication usage, Demonstrated understanding of instructions, follow-up care, medications, Prescriptions given X 4. 22:33 Patient left the ED. vc1 Signatures: Dispatcher [employer] EDMS Tiffany Santos, BAYRONC FREDDY-Mindy Beltran RN RN [id number] Lori Serrano rg4 Alma Fields RN RN ld1 Kenya Watters RN RN vc1 Jeramy Jay rs5 Corrections: (The following items were deleted from the chart) 18:02 18:00 Pulse 64bpm; Resp 18bpm; Pulse Ox 100% RA; 124.74 kg; Height 5 ft. 5 in.; BMI: ld1 45.7; Pain 10/10; ld1 18:55 18:50 Reassessment: Patient is alert, oriented x 3, equal unlabored respirations, skin aa5 warm/dry/pink. Patient states symptoms have not improved. Pt actively vomiting . aa5
[2022-10-25 23:22] VITALS: BP 133/66; TEMP 98.2; O2SAT 100
== END 2022-10-25 22:33 | disposition home or self-care (01) ==
LOC: ER 17:57
DX: N20.1 Calculus of ureter (principal)
CPT/HCPCS: 36415; 74176; 76377; 80053; 81015; 83690; 85025; 96361; 96365; 96375; 99284; J2405; J3475; J7030

== ENCOUNTER 2022-10-27 15:52 | Emergency (ER) | payer SELFPAY ==
[2022-10-27] MEDS ORDERED: NA CHLORIDE 0.9% 1,000 ML ONE (16:59)
[2022-10-27] MEDS ORDERED: MORPHINE 4 MG/ML SYR ONE (16:59)
[2022-10-27] MEDS ORDERED: ONDANSETRON 4 MG/2 ML VIAL ONE (16:59)
[2022-10-27 17:27] LABS: Absolute Lymphocytes (CBC) 1.8 K/uL (0.7-4.9); Hematocrit 39.1 % (39.6-49.0); Lymphocytes % 17.3 % (15.3-44.8); MCV 90.7 fL (80-100); MPV 8.8 fL (7.6-11.3); RBC Red Blood Cell Count 4.32 M/uL (4.33-5.43)
[2022-10-27 17:32] LABS: Urine Blood 2+ (Negative); Urine Glucose Negative (Negative); Urine Protein Negative (Negative); Urine Specific Gravity 1.025 (1.005-1.030); Urine pH 6.5 (5.0-7.0)
[2022-10-27 17:57] LABS: Urine Mucus Slight /HPF (None Seen); Urine RBC >50 /HPF (None Seen)
--- NOTE | 2022-10-27 17:57 | RAD REPORT ---
EXAM DESCRIPTION: US - Renal Ultrasound-Limited - 10/27/2022 5:45 pm CLINICAL HISTORY: Right flank pain COMPARISON: CT October 25, 2022 FINDINGS: Right kidney measures 12 centimeters with a normal echotexture. Renal calculus is not seen Mild to moderate right hydronephrosis without significant change. The bladder appears grossly IMPRESSION: [id number] right hydronephrosis without significant change from the prior exam
[2022-10-27] MEDS ORDERED: KETOROLAC 30 MG/ML INJ ONE (18:08)
[2022-10-27] MEDS ORDERED: TAMSULOSIN 0.4 MG SR CAP ONE (18:08)
[2022-10-27 18:32] LABS: Albumin 3.5 g/dL (3.4-5.0); Bilirubin Total 0.4 mg/dL (0.2-1.0); Potassium 4.2 mmol/L (3.5-5.1); Protein, Total 7.5 g/dL (6.4-8.2)
--- NOTE | 2022-10-27 19:08 | ER ---
Nurse's Notes [facility] Name: Merritt Montano Age: 32 yrs Sex: Male : 1990 Arrival Date: 10/27/2022 Time: 15:55 Bed 18 Private MD: Diagnosis: Calculus of ureter-right Presentation: 10/27 16:05 Chief complaint: Patient states: Wednesday was dx with kidney stones; taking tylenol #3 ss and it's not helping so I can't handle the pain so I came back. Coronavirus screen: Vaccine status: Patient reports being unvaccinated. Client denies travel out of the [place] in the last 14 days. Ebola Screen: Patient negative for fever greater than or equal to 101.5 degrees Fahrenheit, and additional compatible Ebola Virus Disease symptoms Patient denies exposure to infectious person. Patient denies travel to an Ebola-affected area in the 21 days before illness onset. Initial Sepsis Screen: Does the patient meet any 2 criteria? No. Patient's initial sepsis screen is negative. Does the patient have a suspected source of infection? No. Patient's initial sepsis screen is negative. Risk Assessment: Do you want to hurt yourself or someone else? Patient reports no desire to harm self or others. 16:05 Method Of Arrival: Ambulatory ss 16:05 Acuity: NATI 4 ss 19:43 Onset of symptoms was October 27, 2022. kd3 Triage Assessment: 16:07 General: Appears uncomfortable, obese, well groomed, well developed, Behavior is calm, ss cooperative, appropriate for age. Pain: Complains of pain in right side that goes down to testicals. GI: Reports lower abdominal pain. Historical: - Allergies: 16:07 No Known Allergies; ss - PMHx: 16:07 kidney stones; ss - Immunization history:: Adult Immunizations up to date. - Social history:: Smoking status: Patient denies any tobacco usage or history of. Screenin:51 Abuse screen: Denies threats or abuse. Nutritional screening: No deficits noted. vg1 Tuberculosis screening: No symptoms or risk factors identified. Fall Risk No fall in past 12 months (0 pts). No secondary diagnosis (0 pts). IV access (20 points). Ambulatory Aid- None/Bed Rest/Nurse Assist (0 pts). Gait- Normal/Bed Rest/Wheelchair (0 pts) Mental Status- Oriented to own ability (0 pts). Total Arthur Fall Scale indicates No Risk (0-24 pts). Assessment: 16:51 General: Appears in no apparent distress. uncomfortable, Behavior is calm, cooperative. vg1 Pain: Complains of pain in posterior aspect of right lateral abdomen and right lower quadrant Pain currently is 7 out of 10 on a pain scale. Pain began 2-3 days ago. Neuro: Level of Consciousness is awake, alert, obeys commands, Oriented to person, place, time, situation. Cardiovascular: Patient's skin is warm and dry. Respiratory: Airway is patent Respiratory effort is even, unlabored. GI: Abdomen is round non-distended, Bowel sounds present X 4 quads. Abdomen is tender to palpation in right lower quadrant. : Denies burning with urination, blood in urine. EENT: No signs and/or symptoms were reported regarding the EENT system. Derm: Skin is pink, warm \T\ dry. Musculoskeletal: Circulation, motion, and sensation intact. 18:12 Reassessment: Patient appears in no apparent distress at this time. Patient and/or vg1 family updated on plan of care and expected duration. Pain level reassessed. Patient is alert, oriented x 3, equal unlabored respirations, skin warm/dry/pink. Patient states feeling better. Vital Signs: 16:05 BP 137 / 84; Pulse 64; Resp 18; Temp 97.8; Pulse Ox 100% ; Weight 124.74 kg; Height 5 ss ft. 5 in. (165.10 cm); Pain 8/10; 18:00 BP 140 / 69; Pulse 67; Resp 17; Pulse Ox 100% on R/A; vg1 19:43 BP 134 / 73; Pulse 86; Resp 18; Pulse Ox 100% ; kd3 16:05 Body Mass Index 45.76 (124.74 kg, 165.10 cm) ED Course: 15:55 Patient arrived in ED. rg4 16:05 Ludin De Paz PA is PHCP. cp 16:05 Steven Saavedra MD is Attending Physician. cp 16:05 Safia Navarro FNP-C is PHCP. snw 16:07 Triage completed. ss 16:07 Arm band placed on left wrist. ss 16:33 Faviola Serrano, RN is Primary Nurse. vg1 16:51 Patient has correct armband on for positive identification. Bed in low position. Call vg1 light in reach. Side rails up X 1. 17:12 Missed attempt(s): 20 gauge in right antecubital area. vg1 17:20 Inserted saline lock: 20 gauge in left antecubital area, using aseptic technique. vg1 17:47 US Rp Exam Limited In Process Unspecified. EDMS 18:02 Lab(s) recollected, by me, sent to lab. jd3 19:07 Smooth Mcnair MD is Referral Physician. cp 19:43 No provider procedures requiring assistance completed. IV discontinued, intact, kd3 bleeding controlled, No redness/swelling at site. Pressure dressing applied. Administered Medications: 17:20 Drug: NS 0.9% 1000 ml Route: IV; Rate: 1 bolus; Site: left antecubital; vg1 19:44 Follow up: IV Status: Completed infusion; IV Intake: 500ml kd3 17:20 Drug: Zofran (Ondansetron) 4 mg Route: IVP; Site: left antecubital; vg1 19:44 Follow up: Response: No adverse reaction kd3 17:22 Drug: morphine 4 mg Route: IVP; Infused Over: 4 mins; Site: left antecubital; vg1 19:45 Follow up: Response: No adverse reaction; Pain is decreased kd3 18:09 Drug: Ketorolac 15 mg Route: IVP; Site: left antecubital; vg1 19:44 Follow up: Response: No adverse reaction; Pain is decreased kd3 18:11 Drug: Flomax (tamsulosin) 0.4 mg Route: PO; vg1 19:44 Follow up: Response: No adverse reaction; Pain is decreased kd3 Medication: 16:51 VIS not applicable for this client. vg1 Intake: 19:44 IV: 500ml; Total: 500ml. kd3 Outcome: 19:08 Discharge ordered by . cp 19:43 Discharged to home ambulatory. kd3 19:43 Condition: stable 19:43 Discharge instructions given to patient, family, Instructed on discharge instructions, follow up and referral plans. Demonstrated understanding of instructions, follow-up care. 19:45 Patient left the ED. kd3 Signatures: Dispatcher [employer] EDWV Safia Navarro FNP-C ASSISTANT TENNIS COACH-[employer] Neha Senior, NOHELIA RN ss Ludin De Paz PA PA cp Garcia, Rubi rg4 Piero Staton RN RN jd3 Faviola Serrano RN RN vg1 Ayde Oswlad RN RN kd3 Corrections: (The following items were deleted from the chart) 16:08 16:05 Pulse 64bpm; Resp 18bpm; Pulse Ox 100%; Temp 97.8F; 124.74 kg; Height 5 ft. 5 ss in.; BMI: 45.7; Pain 8/10; ss
--- NOTE | 2022-10-27 19:08 | EDPHYS ---
Physician Documentation [facility] Name: Merritt Montano Age: 32 yrs Sex: Male : 1990 Arrival Date: 10/27/2022 Time: 15:55 Bed 18 Private MD: ED Physician Steven Saavedra HPI: 10/27 17:00 This 32 yrs old Male presents to ER via Ambulatory with complaints of Possible cp Kidney Stone. 17:00 The patient complains of pain in the right flank. cp 17:00 The pain radiates to the right lower abdomen and right testicle. Associated signs and cp symptoms: Pertinent positives: nausea, Pertinent negatives: diarrhea, fever, pain radiating to the lower extremities, vomiting. The patient has been recently seen at the [facility] Emergency Department, this week, for similar complaints labs were performed, CT scan was performed, was given a prescription for pain medications, diagnosed with 7 mm right side kidney stone. Patient reports continued pain not relieved by tylenol #3. Historical: - Allergies: 16:07 No Known Allergies; ss - PMHx: 16:07 kidney stones; ss - Immunization history:: Adult Immunizations up to date. - Social history:: Smoking status: Patient denies any tobacco usage or history of. ROS: 17:05 Constitutional: Negative for body aches, chills, fever, poor PO intake. cp 17:05 Eyes: Negative for injury, pain, redness, and discharge. cp 17:05 ENT: Negative for drainage from ear(s), ear pain, sore throat, difficulty swallowing, difficulty handling secretions. 17:05 Cardiovascular: Negative for chest pain, palpitations. 17:05 Respiratory: Negative for cough, shortness of breath, wheezing. 17:05 Abdomen/GI: Positive for abdominal pain, nausea, Negative for vomiting, diarrhea, constipation. 17:05 Back: Positive for flank pain, on the right. 17:05 : Negative for burning with urination. 17:05 Neuro: Negative for altered mental status, headache, weakness. 17:05 All other systems are negative. Exam: 17:10 Constitutional: The patient appears in no acute distress, alert, awake, non-toxic, well cp developed, well nourished, obese. 17:10 Head/Face: Normocephalic, atraumatic. cp 17:10 Eyes: Periorbital structures: appear normal, Conjunctiva: normal, no exudate, no injection, Sclera: no appreciated abnormality, Lids and lashes: appear normal, bilaterally. 17:10 ENT: External ear(s): are unremarkable, Nose: is normal, Mouth: Lips: moist, Oral mucosa: moist, Posterior pharynx: Airway: no evidence of obstruction, patent. 17:10 Chest/axilla: Inspection: normal. 17:10 Cardiovascular: Rate: normal, Rhythm: regular. 17:10 Respiratory: the patient does not display signs of respiratory distress, Respirations: normal, no use of accessory muscles, no retractions, labored breathing, is not present, Breath sounds: are clear throughout, no decreased breath sounds, no stridor, no wheezing. 17:10 Abdomen/GI: Inspection: abdomen appears normal, Bowel sounds: active, all quadrants, Palpation: soft, in all quadrants, mild abdominal tenderness, in the anterior aspect of right lateral abdomen, posterior aspect of right lateral abdomen, right upper quadrant and right lower quadrant, rebound tenderness, is not appreciated, involuntary guarding, is not appreciated. 17:10 Neuro: Orientation: to person, place \T\ time. Mentation: is normal, Motor: moves all fours, strength is normal, Sensation: is normal. Vital Signs: 16:05 BP 137 / 84; Pulse 64; Resp 18; Temp 97.8; Pulse Ox 100% ; Weight 124.74 kg; Height 5 ss ft. 5 in. (165.10 cm); Pain 8/10; 18:00 BP 140 / 69; Pulse 67; Resp 17; Pulse Ox 100% on R/A; vg1 19:43 BP 134 / 73; Pulse 86; Resp 18; Pulse Ox 100% ; kd3 16:05 Body Mass Index 45.76 (124.74 kg, 165.10 cm) ss MDM: 16:45 Patient medically screened. cp 17:00 Differential diagnosis: nephrolithiasis, pyelonephritis, UTI, testicular torsion. cp 19:06 Data reviewed: vital signs, nurses notes, lab test result(s), radiologic studies, cp ultrasound. ED course: VSS. Pain improved with meds. Patient sitting in exam room legs crossed, no acute distress and appears comfortable. Patient reports having appointment with DR Mcnair, urology, tomorrow at 1300. 19:08 Counseling: I had a detailed discussion with the patient and/or guardian regarding: the cp historical points, exam findings, and any diagnostic results supporting the discharge/admit diagnosis, lab results, radiology results, the need for outpatient follow up, for definitive care, a urologist, to return to the emergency department if symptoms worsen or persist or if there are any questions or concerns that arise at home. 19:08 Response to treatment: the patient's symptoms have markedly improved after treatment, cp and as a result, I will discharge patient. 12 16:51 Order name: CBC with Diff; Complete Time: 17:58 cp 10/27 17:58 Interpretation: Normal except: RBC 4.32; HCT 39.1; ALAN% 74.3. cp 10/27 16:51 Order name: CMP; Complete Time: 18:51 cp 10/27 18:51 Interpretation: Normal except: BUN 20; GFR 76; AST 42; ALT 91; GLOB 4.0; A/G 0.9. cp 10/27 16:51 Order name: Lipase; Complete Time: 18:51 cp 10/27 16:51 Order name: Urine Microscopic Only; Complete Time: 17:58 cp 10/27 17:58 Interpretation: Abnormal: URBC >50. cp 10/27 17:14 Order name: US Rp Exam Limited; Complete Time: 17:58 cp 10/27 17:32 Order name: Urine Dipstick-Ancillary; Complete Time: 17:58 EDMS 10/27 16:51 Order name: IV Saline Lock; Complete Time: 17:25 cp 10/27 16:51 Order name: Labs collected and sent; Complete Time: 17:14 cp 10/27 16:51 Order name: Urine Dipstick-Ancillary (obtain specimen); Complete Time: 18:01 cp 10/27 17:34 Order name: Labs - recollect needed: recollect light green top; Complete Time: 18:01 bd 10/27 18:53 Order name: PO challenge; Complete Time: 19:36 cp Administered Medications: 17:20 Drug: NS 0.9% 1000 ml Route: IV; Rate: 1 bolus; Site: left antecubital; vg1 19:44 Follow up: IV Status: Completed infusion; IV Intake: 500ml kd3 17:20 Drug: Zofran (Ondansetron) 4 mg Route: IVP; Site: left antecubital; vg1 19:44 Follow up: Response: No adverse reaction kd3 17:22 Drug: morphine 4 mg Route: IVP; Infused Over: 4 mins; Site: left antecubital; vg1 19:45 Follow up: Response: No adverse reaction; Pain is decreased kd3 18:09 Drug: Ketorolac 15 mg Route: IVP; Site: left antecubital; vg1 19:44 Follow up: Response: No adverse reaction; Pain is decreased kd3 18:11 Drug: Flomax (tamsulosin) 0.4 mg Route: PO; vg1 19:44 Follow up: Response: No adverse reaction; Pain is decreased kd3 Disposition Summary: 10/27/22 19:08 Discharge Ordered Location: Home cp Problem: new cp Symptoms: have improved cp Condition: Stable cp Diagnosis - Calculus of ureter - right cp Followup: cp - With: Smooth Mcnair MD - When: Tomorrow - Reason: Recheck today's complaints Forms: - Medication Reconciliation Form cp - Thank You Letter cp - Antibiotic Education cp - Prescription Opioid Use cp Signatures: Dispatcher [employer] EDMarci Vee Shelby, RN RN ss Page, Corey, PA PA cp Garcia, Victoria RN RN vg1 Ayde Oswald RN kd3
[2022-10-28 02:12] VITALS: TEMP 97.8; O2SAT 100
[2022-10-28 02:14] VITALS: BP 134/73
== END 2022-10-27 19:45 | disposition home or self-care (01) ==
LOC: ER 15:52
DX: N20.1 Calculus of ureter (principal); Z87.442 Personal history of urinary calculi
CPT/HCPCS: 36415; 76775; 80053; 81003; 81015; 83690; 85025; 96361; 96374; 96375; 99284; J2405; J7030